=== PATIENT | male | born 1975 | race Hispanic/Latino ===

== ENCOUNTER 2016-09-13 14:07 | Emergency (ER) | payer OTHER, MEDICARE ==
[~2016-09-13] VITALS: Ht 162.6 cm; Wt 110.2 kg
[2016-09-13] MEDS ORDERED: LISINOPRIL10 M1 PO (16:55)
[2016-09-13] MEDS ORDERED: VASCEPA1 G1 PO (16:55)
[2016-09-13] MEDS ORDERED: METFORMIN HCL1000 M1 PO (16:55)
[2016-09-13] MEDS ORDERED: JANUVIA100 M1 PO (16:55)
[2016-09-13] MEDS ORDERED: SERTRALINE HCL100 MG PO (16:58)
[2016-09-13] MEDS ORDERED: BENZTROPINE ME0.5 M1 PO (16:58)
[2016-09-13] MEDS ORDERED: HALOPERIDOL10 M1 PO (16:58)
--- NOTE | 2016-09-13 16:58 | ED HEADACHE COMPLAINT ---
History of Present Illness General Chief Complaint: General Adult Stated Complaint: HIGH BLOOD PRESSURE Source: patient Exam Limitations: no limitations Vital Signs & Intake/Output Vital Signs & Intake/Output Vital Signs Date Time Temp Pulse Resp B/P B/P Pulse O2 O2 Flow FiO2 Mean Ox Delivery Rate 09/13 1810 98.1 88 18 139/76 97 Room Air 09/13 1424 97.5 90 20 147/75 97 Room Air Room Air Allergies Coded Allergies: NO KNOWN ALLERGIES (03/06/12) Reconcile Medications Atorvastatin Calcium 40 MG TABLET 2 TAB PO DAILY CHOLESTEROL (Reported) Benztropine Mesylate 0.5 MG TABLET 1 TAB PO DAILY MENTAL HEALTH (Reported) Butalb/Acetaminophen/Caffeine (Fioricet 50-300-40 MG Capsule) 50 MG-300 MG-40 MG CAPSULE 1 TAB PO BID PRN HEADACHE Dapagliflozin Propanediol (Farxiga) 10 MG TABLET 1 TAB PO DAILY MENTAL HEALTH (Reported) Haloperidol 10 MG TABLET 1 TAB PO QPM MENTAL HEALTH (Reported) Icosapent Ethyl (Vascepa) 1 GRAM CAPSULE 2 CAP PO BID CHOLESTEROL/ TRIGLYCERIDES (Reported) Lisinopril (Unknown Strength) TABLET (Unknown Dose) PO DAILY BP (Reported) Metformin HCl 1,000 MG TABLET 1 TAB PO BID DM (Reported) Sertraline HCl 100 MG TABLET 1 TAB PO DAILY MENTAL HEALTH (Reported) Sitagliptin Phosphate (Januvia) (Unknown Strength) TABLET (Unknown Dose) PO DAILY DM (Reported) Triage Note: PT TO ED WITH C/O HIGH BLOOD PRESSURE, TAKING BP MEDICINE PRESCRIBED. BP IN TRIAGE: 147/75 Triage Nurses Notes Reviewed? yes Onset: Gradual Duration: day(s): Timing: recent history Quality/Severity: pressure Severity Numbers: 3 Modifying Factors: Worsens With: movement. HPI: 40-year-old male with history of hypertension, diabetes, schizophrenia presents emergency department complaining of headache 3 days. Headache is described as pressure and 3/10, worse with movement of his head. Patient states he had headache like this in the past, he did have a history of headaches about 5 years ago however Tylenol alleviated his headaches. He tried Tylenol for this headache with no relief. Take is located posterior left side with radiation towards left ear and was constant for the past 2 days however today has been intermittent. The patient is worried that his blood pressures affecting his headache. He denies visual changes, chest pain, dyspnea, abdominal pain, nausea , vomiting. Past History Travel History Traveled to [place] past 21 day No Medical History Any Pertinent Medical History? 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 No Review of Systems Review of Systems Constitutional: Reports: no symptoms. Eyes: Reports: no symptoms. Ears, Nose, Throat, Mouth: Reports: no symptoms. Respiratory: Reports: no symptoms. Cardiovascular: Reports: no symptoms. Gastrointestinal/Abdominal: Reports: no symptoms. Genitourinary: Reports: no symptoms. Musculoskeletal: Reports: no symptoms. Skin: Reports: no symptoms. Neurological/Psychological: Reports: see HPI. Hematologic/Endocrine: Reports: no symptoms. Endocrine: Reports: no symptoms. Immunologic/Allergic: Reports: no symptoms. All Other Systems: Reviewed and Negative Physical Exam Physical Exam Cranial Nerves: normal hearing, normal speech, PERRL Comments: Well-developed well-nourished person in no acute distress HEENT: Normal EENT exam; PERRL, EOMI, no nystagmus. HEAD is atraumatic. moist mucous membranes. Neck: Supple, normal range of motion without pain or tenderness Back: Nontender,Full range of motion Cardiovascular: Regular rate and rhythms no murmurs rubs or gallops Respiratory: No respiratory distress. Patient speaking in full complete sentences. Extremity: No edema, full range of motion of extremities Neuro: Alert oriented x3, motor sensory normal, cranial nerves II through XII grossly intact. There were no obvious focal neurologic abnormalities. Skin: No appreciable rash on exposed skin, skin is warm and dry. Psych: Mood and affect is normal, memory and judgment is normal. Core Measures Severe Sepsis Present: No Septic Shock Present: No Progress Differential Diagnosis: cluster ISAAC, encephalitis, intracranial Hem., meningitis, migraine ISAAC, musculoskeletal pain, subarach. Hem., tension ISAAC, temporal arteritis, TMJ syndrome Plan of Care: Current Medications Sig/Armando Start time Last Medication Dose Stop Time Status Admin Acetaminophen/ 1 TAB ONCE ONE 09/13 1699 UNVr Butalbital/Caffeine 09/13 1700 (Fioricet) Patient is neurologically intact, he has no focal neurologic deficit. He denies recent changes or withdrawal from medication. He was given fioricet in the ED, he did not notice change in the quality or severity of his headache. The patient was discussed with Dr. Hinson. He is complaining of mild persistent headache. The patient's blood pressure is within normal limits in ED. Dr. Hinson recommends IM Toradol. Upon re-examination the patient states his pain has improved, 03/09 currently, he does not wish to have further pain medication and wishes to go home. He lives [place]8min away in [place], he does not feel drowsy and feels okay to drive currently. The patient was instructed to increase his fluid intake, take tylenol or motrin as prescribed for his pain, and return if symptoms worsen. The patient is well appearing, he has stable vital signs, he feels ready to go home. The patient is in agreement with the plan of care. The patient will call his PCP and make an appointment for as soon as possible to review his symptoms. The patient was informed that if his symptoms are persistent he may need to follow up with a neurologist to assess his headaches. (YEIMI SPAIN,WING CLINT[place]) Departure Departure Disposition: HOME OR SELF CARE Condition: Stable Clinical Impression Primary Impression: Headache Referrals: RADHA DELGADO MD (PCP/Family) Additional Instructions: Take Tylenol or Motrin as prescribed as needed for your headache. Take Fioricet as prescribed as needed for your headache. Increase her fluid intake. Follow-up with your primary care doctor regarding your blood pressure and your headache. Return with any worsening symptoms or concerns, increasing severity of headache, visual changes, nausea and vomiting, confusion. Departure Forms: Customer Survey General Discharge Information Prescriptions: Current Visit Scripts Butalb/Acetaminophen/Caffeine (Fioricet 50-300-40 MG Capsule) 1 TAB PO BID PRN HEADACHE #10 TAB
[2016-09-13] MEDS ORDERED: ATORVASTATIN CA40 M1 PO (16:59)
[2016-09-13] MEDS ORDERED: FARXIGA10 M1 PO (16:59)
[2016-09-13] MEDS ORDERED: FIORICET 50-301 EACH PO (18:05)
[2016-09-13 18:10] VITALS: BP 139/76
== END 2016-09-13 18:14 ==
LOC: ERH 14:07
DX: R51 Headache (principal)